=== PATIENT | female | born 1980 | race Hispanic/Latino ===

== ENCOUNTER 2022-06-30 02:03 | Emergency (ER) | payer BC ==
[~2022-06-30] VITALS: Ht 154.9 cm; Wt 86.6 kg
== END 2022-06-30 03:45 | disposition home or self-care (01) ==
LOC: FSED 02:29
DX: R00.2 Palpitations (principal); R51.9 Headache, unspecified; F41.9 Anxiety disorder, unspecified
CPT/HCPCS: 80053; 82553; 84484; 93005; 99283